=== PATIENT | female | born 1955 | race Caucasian/White ===

== ENCOUNTER 2021-06-30 10:26 | Emergency (ER) | payer MEDICARE ==
[2021-06-30 10:37] VITALS: RESP 18
[2021-06-30] MEDS ORDERED: diphenhydrAMINE 50 MG/ML 1 ML VIAL IVP STA (11:15)
[2021-06-30] MEDS ORDERED: ONDANSETRON 4 MG/2 ML VIAL IVP STA (11:15)
[2021-06-30] MEDS ORDERED: SODIUM CHLORIDE 0.9% 1,000 ML IV STA (11:15)
[2021-06-30] MEDS ORDERED: KETOROLAC 30 MG/ML 1 ML VIAL IVP STA (11:15)
--- NOTE | 2021-06-30 11:18 | ED ---
General Adult HPI - General Chief complaint: Chest Pain Stated complaint: Shoulder/righ arm pain/chest pressure Time Seen by Provider: 06/30/21 10:40 Source: patient Mode of arrival: wheelchair Limitations: no limitations - History of Present Illness Initial comments: Dictation was produced using [employer] dictation software. please excuse any grammatical, word or spelling errors. Chief Complaint: 66-year-old female presents emergency Department with headache, shoulder pain and chest pain History of Present Illness: Patient's 66-year-old female she is been having 8 months of frequent headaches. She has extensive workup performed by neurologist on outpatient basis. Patient states that her workup so far is negative. This morning it 8:00 AM she began having symptoms of headache. She states her headaches are normally to her right parietal area. This morning her headaches were holocranial. Not throbbing in nature. Shows a complaining of right-sided trapezius pain that rates on the right upper extremity. She also has chest pressure. Her chest rushes not associated with diaphoresis or nausea. She has no history of coronary artery disease. She does have some family history of heart attacks. The ROS documented in this emergency department record has been reviewed and confirmed by me. Those systems with pertinent positive or negative responses have been documented in the HPI. All other systems are other negative and/or noncontributory. PHYSICAL EXAM: General Impression: Alert and oriented x3, not in acute distress HEENT: Normocephalic atraumatic, extra-ocular movements intact, pupils equal and reactive to light bilaterally, mucous membranes moist. Cardiovascular: Heart regular rate and rhythm Chest: Able to complete full sentences, no retractions, no tachypnea Abdomen: abdomen soft, non-tender, non-distended, no organomegaly Musculoskeletal: Pulses present and equal in all extremities, no peripheral edema Motor: no focal deficits noted Neurological: CN II-XII grossly intact, no focal motor or sensory deficits noted, negative Lhermitte's, negative Brudzinski, negative Kernig's Skin: Intact with no visualized rashes Psych: Normal affect and mood ED course: 66-year-old female presents to the emergency department for multiple complaints. Complaints include headache, chest pain and trapezius pain. Vital signs upon arrival are within acceptable limits. Patient has no facial droop. at the bedside confirm the patient has no facial droop at rest or with smiling. Laboratory evaluation obtained. CBC and metabolic panel is unremarkable. Patient given headache cocktail. Computed tomography scan of the brain is unremarkable for acute processes. There is a 1 similar fullness of the pituitary gland which appears somewhat unusual patient's age. There is concern for pituitary cyst versus adenoma.. Patient per presented to us less than 6 hours before this episode of headache. Patient reevaluated bedside she's not having any vision changes. Her pain is improved. EKG interpretation: Ventricular rate 87, normal sinus rhythm,. 164, QRS 72, QTc 462. No MS prolongation, no QTC prolongation, no ST or T-wave changes noted. Overall, this EKG is unremarkable Patient reevaluated at bedside at 1:20 PM findings stable medical condition. She is notified of the results of her computed tomography scan. She brought in some disc and radiology reports per she states she had an MRI performed within this month that she has not gotten the results for yet. Patient told of her CT findings that she should follow-up with her neurologist. She has an appointment on . Patient will be discharged. - Related Data Allergies Allergy/AdvReac Type Severity Reaction Status Date / Time Penicillins Allergy Swelling Verified 06/30/21 10:33 Review of Systems ROS Statement: Those systems with pertinent positive or pertinent negative responses have been documented in the HPI. ROS Other: All systems not noted in ROS Statement are negative. Past Medical History Past Medical History: Diabetes Mellitus, Hypertension, Thyroid Disorder History of Any Multi-Drug Resistant Organisms: None Reported Past Surgical History: Hysterectomy Past Psychological History: No Psychological Hx Reported Smoking Status: Never smoker Past Alcohol Use History: None Reported Past Drug Use History: None Reported General Exam Limitations: no limitations Course Vital Signs 06/30/21 10:33 Temperature 97.4 F L Pulse Rate 92 Respiratory 18 Rate Blood Pressure 128/75 O2 Sat by Pulse 96 Oximetry Medical Decision Making - Lab Data Result diagrams: 06/30/21 11:47 06/30/21 11:47 Lab Results 06/30/21 06/30/21 06/30/21 Range/Units 11:47 11:47 11:47 WBC 10.6 (3.8-10.6) k/uL RBC 5.28 (3.80-5.40) m/uL Hgb 15.2 (11.4-16.0) gm/dL Hct 45.0 (34.0-46.0) % MCV 85.2 (80.0-100.0) fL MCH 28.8 (25.0-35.0) pg MCHC 33.8 (31.0-37.0) g/dL RDW 13.3 (11.5-15.5) % Plt Count 202 (150-450) k/uL MPV 6.9 Neutrophils % 79 % Lymphocytes % 11 % Monocytes % 7 % Eosinophils % 1 % Basophils % 0 % Neutrophils # 8.4 H (1.3-7.7) k/uL Lymphocytes # 1.2 (1.0-4.8) k/uL Monocytes # 0.8 (0-1.0) k/uL Eosinophils # 0.1 (0-0.7) k/uL Basophils # 0.0 (0-0.2) k/uL Sodium 136 L (137-145) mmol/L Potassium 4.4 (3.5-5.1) mmol/L Chloride 105 (98-107) mmol/L Carbon Dioxide 24 (22-30) mmol/L Anion Gap 7 mmol/L BUN 19 H (7-17) mg/dL Creatinine 0.78 (0.52-1.04) mg/dL Est GFR (CKD-EPI)AfAm >90 (>60 ml/min/1.73 sqM) Est GFR (CKD-EPI)NonAf 80 (>60 ml/min/1.73 sqM) Glucose 192 H (74-99) mg/dL Calcium 9.3 (8.4-10.2) mg/dL Troponin I 0.014 (0.000-0.034) ng/mL Disposition Clinical Impression: Headache Disposition: HOME SELF-CARE Condition: Fair Instructions (If sedation given, give patient instructions): Acute Headache (DC) Additional Instructions: Follow-up with your neurologist. It is important that you speak with her neurologist about your CT findings here at our emergency department. Is patient prescribed a controlled substance at d/c from ED?: No Referrals: Martha De La Paz DO [Primary Care Provider] - 1-2 days
--- NOTE | 2021-06-30 11:33 | CT ---
EXAMINATION TYPE: CT brain wo con DATE OF EXAM: 06/30/2021 COMPARISON: None HISTORY: 66-year-old female DIZZY, HEADACHE TECHNIQUE: Examination was done in axial plane without intravenous contrast. Coronal and sagittal r econstructions performed. CT DLP: 1041.4 mGycm Automated exposure control for dose reduction was used. FINDINGS: There is no evidence of acute intracranial hemorrhage, acute ischemic changes, mass, mass-effect, or extra-axial fluid collection. There is no effacement of cerebral sulci or basal subarachnoid cister ns. There is no hydrocephalus. There is no midline shift. Mack-white matter distinction is preserv ed. 1 cm fullness of the pituitary gland, sagittal image 27. Mild to moderate patchy white matter hypoden sities in both cerebral hemispheres. Paranasal sinuses and mastoid air cells well pneumatized. Orbits and globes are intact. Slight leftwa rd nasal septal deviation. IMPRESSION: 1. No acute intracranial abnormality seen. Mild to moderate burden of chronic small vessel ischemic d isease. 2. 1 cm fullness of the pituitary gland, somewhat unusual for patient's age. Consider MRI brain and s lane to exclude an underlying pituitary cyst or adenoma.
[2021-06-30 12:10] LABS: Basophils % (A) 0 %; Eosinophils # (A) 0.1 k/uL (0-0.7); Eosinophils % (A) 1 %; HGB 15.2 gm/dL (11.4-16.0); Lymphocytes # (A) 1.2 k/uL (1.0-4.8); Lymphocytes % (A) 11 %; MCH 28.8 pg (25.0-35.0); MCHC 33.8 g/dL (31.0-37.0); MCV 85.2 fL (80.0-100.0); Mean Platelet Volume 6.9; Monocytes # (A) 0.8 k/uL (0-1.0); Monocytes % (A) 7 %; Neutrophils # (A) 8.4 k/uL (1.3-7.7); Neutrophils % (A) 79 %; Platelet Count 202 k/uL (150-450); RBC 5.28 m/uL (3.80-5.40); RDW 13.3 % (11.5-15.5); WBC 10.6 k/uL (3.8-10.6)
[2021-06-30 12:37] LABS: African American GFR (CKD) >90 (>60 ml/min/1.73 sqM); Anion Gap 7 mmol/L; Blood Urea Nitrogen 19 mg/dL (7-17); Calcium 9.3 mg/dL (8.4-10.2); Carbon Dioxide 24 mmol/L (22-30); Chloride 105 mmol/L (98-107); Glucose 192 mg/dL (74-99); Non-African American GFR(CKD) 80 (>60 ml/min/1.73 sqM); Potassium 4.4 mmol/L (3.5-5.1); Sodium 136 mmol/L (137-145)
[2021-06-30 13:34] VITALS: BP 122/70; PULSE 75; TEMP 97.5
== END 2021-06-30 13:34 | disposition home or self-care (01) ==
LOC: EC 10:26
DX: R51.9 Headache, unspecified (principal); E11.9 Type 2 diabetes mellitus without complications; I10 Essential (primary) hypertension; E07.9 Disorder of thyroid, unspecified; Z88.0 Allergy status to penicillin; Z90.710 Acquired absence of both cervix and uterus
CPT/HCPCS: 99285; 96374; 96375 ×2; 96361; 36415; 80048; 84484; 85025; 70450; J1200; J2405; J1885; 93005

== ENCOUNTER → 2021-07-24 | Outpatient (CLI) | payer MEDICARE ==
--- NOTE | 2021-07-25 03:06 | MR ---
EXAMINATION TYPE: MR pituitary wo/w con DATE OF EXAM: 07/24/2021 COMPARISON: None HISTORY: Headaches x 6 months CONTRAST: Standard multiplanar, multisequence MRI departmental protocol images were obtained without contrast a nd with 8 mL intravenous Gadavist gadolinium contrast. There is some mild enlargement of the sella turcica. There is downward sloping of the floor of the se lla turcica on the left side. There is also 6 mm somewhat rounded area of decreased enhancement on th e left side at the base of the pituitary gland. The pituitary stalk is in the midline. The optic fredy sm appears normal. There is mild cerebral atrophy. IMPRESSION: There is some asymmetric enlargement of the left side pituitary gland with downward sloping floor of the sella turcica. This is suggestive of a chronic condition. There is decreased enhancement consiste nt with a large left side microadenoma. Cerebral cortical atrophy.
== END | disposition home or self-care (01) ==
LOC: RADMRIMAIN 11:48
PROVIDERS: ATTEND Psychiatry & Neurology Neurology
DX: G31.89 Other specified degenerative diseases of nervous system (principal); E23.6 Other disorders of pituitary gland
CPT/HCPCS: 70553; A9585

== ENCOUNTER → 2021-07-24 | Outpatient (CLI) | payer MEDICARE ==
--- NOTE | 2021-07-24 12:34 | ECHOF ---
Referral Reason:I73.9 small vessel disease MEASUREMENTS -------- HEIGHT: 162.6 cm WEIGHT: 77.1 kg BP: RVIDd: 2.9 cm (< 3.3) IVSd: 1.4 cm (0.6 - 1.1) LVIDd: 3.0 cm (3.9 - 5.3) LVPWd: 1.3 cm (0.6 - 1.1) IVSs: 1.5 cm LVIDs: 1.8 cm LVPWs: 1.6 cm LAESV Index (A-L): 19.17 ml/m Ao Diam: 2.9 cm (2.0 - 3.7) AV Cusp: 1.8 cm (1.5 - 2.6) LA Diam: 3.4 cm (2.7 - 3.8) MV EXCURSION: 10.595 mm (> 18.000) MV EF SLOPE: 38 mm/s (70 - 150) EPSS: 0.6 cm MV E Rashawn: 0.80 m/s MV DecT: 238 ms MV A Rashawn: 1.48 m/s MV E/A Ratio: 0.54 RAP: 5.00 mmHg RVSP: 31.30 mmHg FINDINGS -------- Sinus rhythm. This was a technically adequate study. The left ventricular size is normal. There is moderate concentric left ventricular hypertrophy. O verall left ventricular systolic function is normal with, an EF between 55 - 60 %. The right ventricle is normal in size. Normal LA size by volume 22+/-6 ml/m2. The right atrial size is normal. Contrast study was performed with 2 iv injections of 8 ccs of agitated normal saline, at rest, and po st-Valsalva. Interatrial and interventricular septum intact. Negative bubble study There is mild aortic valve sclerosis. Moderate mitral annular calcification present. No mitral regurgitation. Mild mitral stenosis , wi th a MVA of 2.7cm (by PHT) The tricuspid valve appears structurally normal. Mild tricuspid regurgitation present. Right vent ricular systolic pressure is normal at < 35 mmHg. The right ventricular systolic pressure, as measu red by Doppler, is 31.30mmHg. There is no pulmonic regurgitation present. The aortic root size is normal. IVC Not well visulized. There is no pericardial effusion. CONCLUSIONS -------- 1. There is moderate concentric left ventricular hypertrophy. 2. Overall left ventricular systolic function is normal with, an EF between 55 - 60 %. 3. Negative bubble study 4. There is mild aortic valve sclerosis. 5. Moderate mitral annular calcification present. 6. Mild mitral stenosis. 7. , with a MVA of 2.7cm (by PHT) 8. Mild tricuspid regurgitation present. SECURITY FLEX OFFICER: Savanna Horta RDCS
== END | disposition home or self-care (01) ==
LOC: RADECHMAIN 11:02
PROVIDERS: ATTEND Psychiatry & Neurology Neurology
DX: I08.3 Combined rheumatic disorders of mitral, aortic and tricuspid valves (principal)
CPT/HCPCS: 93306

== ENCOUNTER → 2022-03-16 | Outpatient (CLI) | payer MEDICARE, OTHER ==
--- NOTE | 2022-03-16 08:16 | MR ---
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 Pituitary gland protocol. FINDINGS: Pituitary gland stable in size and appearance being slightly enlarged with heterogeneous po stcontrast enhancement and slight thickening of the pituitary stalk sagittal images. Superior convex margin is redemonstrated. The 5 mm area of diminished enhancement in inferior left aspect coronal amauri ge 11 is redemonstrated. Basilar cistern is maintained. Optic chiasm is not effaced. No gross hydrocephalus. Midline structures are preserved. Mild age-related atrophy and presumed chron ic small vessel ischemic change redemonstrated in the visualized portion of brain parenchyma IMPRESSION: Overall stable findings. Stable heterogeneous slightly enlarged pituitary gland with area of nonenhancement left inferior aspect. Cannot exclude neoplasm. No significant change from prior MR I.
== END | disposition home or self-care (01) ==
LOC: RADMRIMAIN 05:53
PROVIDERS: ATTEND Neurological Surgery
DX: D49.7 Neoplasm of unspecified behavior of endocrine glands and other parts of nervous system (principal); E23.6 Other disorders of pituitary gland
CPT/HCPCS: 70553; A9585

== ENCOUNTER → 2022-04-08 | Outpatient (CLI) | payer MEDICARE, OTHER ==
--- NOTE | 2022-04-08 10:36 | MR ---
EXAMINATION TYPE: MR iac wo/w con DATE OF EXAM: 04/08/2022 COMPARISON: MRI pituitary gland 03/16/2010 HISTORY: Lesion, facial droop TECHNIQUE: Multiplanar, multisequence images of the internal auditory canals is performed without and with IV co ntrast, utilizing 8 mL intravenous Gadavist . FINDINGS: Diffusion weighted images demonstrate no evidence of a recent infarct or other diffusion ab normality. There is both confluent and multifocal numerous areas of abnormal signal throughout the w edie matter are nonspecific but most of the vertebral white matter ischemia. Demyelinating process ar e not entirely excluded. The brain volume is age appropriate. The pituitary gland is partially included in the field of view a ppears to be enlarged. Midline structures demonstrate normal morphology. The craniocervical junction appears within normal limits. Post contrast images demonstrate no abnormal enhancement. No cerebellopontine angle mass. Changes of mild chronic sinusitis and the globes are intact. Bilatera l chronic mastoiditis. There are bilateral parotid gland nodules the largest is noted on the left zandra suring 1.2 cm. IMPRESSION: 1. No evidence of cerebellopontine angle mass or acoustic schwannoma. 2. 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 3. Mild chronic sinusitis and bilateral mild chronic mastoiditis. 4. There is both confluent and multifocal numerous areas of abnormal signal throughout the white neymar er are nonspecific but most of the vertebral white matter ischemia. Demyelinating process are not ent irely excluded. 5. There are bilateral parotid gland nodules the largest is noted on the left measuring 1.2 cm.
== END | disposition home or self-care (01) ==
LOC: RADMRIMAIN 08:12
PROVIDERS: ATTEND Neurological Surgery
DX: D49.7 Neoplasm of unspecified behavior of endocrine glands and other parts of nervous system (principal); J32.9 Chronic sinusitis, unspecified; I67.82 Cerebral ischemia
CPT/HCPCS: 70553; A9585

== ENCOUNTER 2022-05-26 12:46 | Outpatient (CLI) | payer MEDICARE, OTHER ==
[2022-05-26 13:38] VITALS: TEMP 97.8
[2022-05-26 14:58] VITALS: BP 124/57; PULSE 67; RESP 16
--- NOTE | 2022-05-26 16:41 | US ---
Left parotid lesion biopsy Date: 05/26/2022 History: Left parotid gland lesion Comparison: MRI 04/08/2022 The patient was brought to the US room after coagulation profile was checked and deemed appropriate. The risks and benefits of the procedure were explained to the patient, and the patient's questions we re answered. Informed consent was obtained. Limited ultrasound demonstrates a 1.5 x 1 x 1.1 cm mixed echogenicity, but dominant hypoechoic lesion with increased through transmission in the posterior aspect of the left parotid gland, corresponding to the enhancing lesion on prior MRI. A critical pause was performed. Sterile field was prepared, and lidocaine was used for local anesthes ia. Under direct ultrasound guidance, fine-needle aspiration was performed with 25-gauge needles for 5 total passes and given to pathology who confirmed adequacy of specimen. The patient tolerated the procedure well with no apparent complications. A postprocedural scan throug h the region of interest demonstrated no acute complications. After the procedure, the patient was observed for a short period of time, again with no complications . Impression: Successful fine-needle aspiration of a lesion in the posterior aspect of the left parotid gland.
== END 2022-05-26 14:52 | disposition home or self-care (01) ==
LOC: RADPROMAIN 12:46
PROVIDERS: ATTEND Otolaryngology Otolaryngology/Facial Plastic Surgery
DX: R22.1 Localized swelling, mass and lump, neck (principal)
CPT/HCPCS: 10005; 88173; 88305

== ENCOUNTER → 2022-09-01 | Outpatient (CLI) | payer MEDICARE, OTHER ==
--- NOTE | 2022-09-01 17:48 | CT ---
EXAMINATION TYPE: CT soft tissue neck w con CT DLP: 328.4 mGycm, Automated exposure control for dose reduction was used. DATE OF EXAM: 09/01/2022 5:22 PM COMPARISON: MRI IAC. 04/08/2022. FNA 05/26/2022. CLINICAL INDICATION:Female, 67 years old with history of R22., parotid mass TECHNIQUE: Standard enhanced CT of the neck. Axial sections with coronal and sagittal reformats were obtained. Contrast used:100ml mL of Isovue 300 with IV Contrast, Oral contrast used: none. FINDINGS: Brain: Visualized portions are grossly unremarkable. Orbits: Unremarkable Sinuses: Grossly unremarkable. Spaces of the neck: Right parotid gland lesion in the superficial gland measuring 6 x 5 mm and in the left parotid gland superficial aspect measuring 12 x 8 mm. There is postsurgical biopsy changes to t he left parotid gland lesion. Musculoskeletal: No acute osseous pathology. Lymph nodes: Multiple nonenlarged lymph nodes are seen along both anterior chains of the neck. Vascular structures: Visualized major arteries are patent without evidence of aneurysm. Thoracic Inlet/airway: Airway is patent. The lung apices are clear. Soft tissues/Thyroid: Thyroid and remainder of the soft tissues are unremarkable. Other: none. IMPRESSION Bilateral parotid gland lesions. Lesions are relatively stable from prior. No evidence for lymphaden opathy. Pathology report for the left parotid lesion was not available. Findings could represent intr aglandular lymph nodes versus pleomorphic adenomas versus with underlying tumors versus others.
== END | disposition home or self-care (01) ==
LOC: RADCTMAIN 15:33
PROVIDERS: ATTEND Otolaryngology
DX: K11.8 Other diseases of salivary glands (principal); R22.1 Localized swelling, mass and lump, neck
CPT/HCPCS: 82565; 84520; 70491; 36415; Q9967